=== PATIENT | male | born 1970 ===

== ENCOUNTER 2023-08-25 09:52 | Outpatient (CLI) | payer OTHER, SELFPAY ==
--- NOTE | ~2023-08-25 | XR_ITS ---
AP and lateral views of the bilateral hips Clinical history: Pain Findings: No acute fracture or dislocation is seen. Osseous alignment is anatomic. There is moderate degenerative change of the right hip joint. There is mild degenerative change of the left hip joint. Soft tissues are unremarkable. Impression: Moderate right hip joint degenerative change. Mild left hip joint degenerative change. Reviewed, dictated and finalized at location . Impression: Moderate right hip joint degenerative change. Mild left hip joint degenerative change.
== END 2023-08-25 09:53 ==
PROVIDERS: PCP Nurse Practitioner; Visit Provider Nurse Practitioner
DX: M16.0 Bilateral primary osteoarthritis of hip (principal); G89.29 Other chronic pain
CPT/HCPCS: 73521

== ENCOUNTER 2024-08-06 12:33 | Outpatient (CLI) | payer OTHER, SELFPAY ==
--- NOTE | ~2024-08-06 | CT_ITS ---
CT of the Abdomen and Pelvis: Indication: Abdominal pain Technique: 2.5 mm axial scans were obtained through the abdomen and pelvis following intravenous adm inistration of 100 cc of Omnipaque 350. Dose reduction technique was used on this scan by utilizing a utomated exposure control and iterative reconstruction technique. The dose-length product (DLP) was 1 150.95 mGy-cm. Findings: Scans through the lung bases are unremarkable. The liver, spleen, pancreas, gallbladder, and adrenal glands are within normal limits. Bilateral nono bstructing renal stones are present. No evidence of aortic aneurysm. No lymphadenopathy. No bowel obstruction or bowel wall thickening. There is inflammatory change with central fat attenuat ion adjacent to the proximal sigmoid colon, compatible with epiploic appendagitis.. Images through the pelvis were performed. Urinary bladder unremarkable. Prostate gland mildly enlarge d. Moderate fat-containing left inguinal hernia present. Impression: Epiploic appendagitis adjacent to the proximal sigmoid colon. Moderate fat-containing left inguinal hernia. Nonobstructing renal stones. Reviewed, dictated and finalized at location . Impression: Epiploic appendagitis adjacent to the proximal sigmoid colon. Moderate fat-containing left inguinal hernia. Nonobstructing renal stones.
== END 2024-08-06 12:34 | disposition home or self-care (01) ==
LOC: MICIMG 12:35
PROVIDERS: PCP Nurse Practitioner; Visit Provider Nurse Practitioner
DX: K65.9 Peritonitis, unspecified (principal); K40.90 Unilateral inguinal hernia, without obstruction or gangrene, not specified as recurrent; N20.0 Calculus of kidney
CPT/HCPCS: 74177; Q9967